=== PATIENT | male | born 1945 | race Caucasian/White ===

== ENCOUNTER 2019-06-29 16:50 | Inpatient (IN) | payer MEDICARE ==
[~2019-06-29] VITALS: Ht 182.9 cm; Wt 74.0 kg
[~2019-06-29 16:50] MED LIST: PIOGLITAZONE HC45 MG PO
[2019-06-29 17:48] LABS: BASOPHILS ABSOLUTE AUTO 0.03 K/mm3 (0.00-0.23); BASOPHILS PERCENT AUTO 0 % (0-2); EOSINOPHILS ABSOLUTE AUTO 0.09 K/mm3 (0.00-0.68); EOSINOPHILS PERCENT AUTO 1 % (0-6); Hematocrit 44.2 % (37.0-53.0); Hemoglobin 14.4 g/dL (13.5-17.5); IMMATURE GRAN ABSOLUTE AUTO 0.02 K/mm3 (0.00-0.10); IMMATURE GRAN PERCENT AUTO 0 % (0-1); LYMPHOCYTES ABSOLUTE AUTO 0.36 K/mm3 (0.84-5.20); LYMPHOCYTES PERCENT AUTO 5 % (21-46); MONOCYTES ABSOLUTE AUTO 0.34 K/mm3 (0.16-1.47); MONOCYTES PERCENT AUTO 4 % (4-13); Mean Corpuscular HGB 32.4 pg (26.0-34.0); Mean Corpuscular HGB Conc 32.6 g/dL (31.5-36.5); Mean Corpuscular Volume 100 fL (80-100); Mean Platelet Volume 11.7 fL (9.1-12.4); NEUTROPHILS PERCENT AUTO 89 % (41-73); Platelet Count 155 K/mm3 (150-400); RDW Coefficient Variation 13.4 % (11.7-14.2); RDW Standard Deviation 49.4 fL (35.1-46.3); Red Blood Cell Count 4.44 M/mm3 (4.30-5.90); White Blood Cell Count 7.94 K/mm3 (4.00-11.30)
[2019-06-29 18:02] LABS: Albumin, Blood 3.6 g/dL (3.4-5.0); Albumin/Globulin Ratio 0.9 (0.8-1.8); Bilirubin, Total 1.3 mg/dL (0.1-1.0); Bun/Creatinine Ratio 14.4 (12.0-20.0); Calcium, Blood 9.2 mg/dL (8.5-10.1); Creatinine, Blood 1.25 mg/dL (0.60-1.20); Globulin, Blood 4.2 g/dL (2.2-4.0); Potassium, Blood 4.4 mmol/L (3.5-5.5); Total Protein, Blood 7.8 g/dL (6.4-8.2)
[2019-06-29] MEDS ORDERED: DONEPEZIL HCL10 M1 PO (18:18)
[2019-06-29] MEDS ORDERED: Fenofibrate200 MG PO (18:19)
[2019-06-29] MEDS ORDERED: Fish Oil 10001000 MG PO (18:30)
[2019-06-29] MEDS ORDERED: VITAMIN B-121000 MC3 PO (18:31)
[2019-06-29] MEDS ORDERED: TOCO1000 PO (18:31)
[2019-06-29 18:35] LABS: International Normalized Ratio 1.28; Prothrombin Time Results 13.5 Sec (9.7-11.5)
[2019-06-29 18:43] LABS: Source, Urine Clean Catch
[2019-06-29 19:07] LABS: Appearance, Urine Clear (Clear); Bilirubin, Urine Neg (Neg); Blood, Urine 1+ (Neg); Color, Urine Yellow (P-Yellow); Glucose Qualitative, Urine 4+ (Neg); Ketones, Urine 1+ (Neg); Leukocyte Esterase, Urine Neg (Neg); Nitrite, Urine Neg (Neg); Protein, Urine 1+ (Neg); Urobilinogen, Urine 2+ (Normal)
[2019-06-29 19:23] LABS: Squamous Epithelial Cells Rare /hpf (Few); White Blood Cells, Urine 0-2 /hpf (0-5)
[2019-06-29 19:24] LABS: Bacteria Rare /hpf
[2019-06-29 21:08] LABS: Influenza A Negative (NEGATIVE); Influenza B Negative (NEGATIVE)
--- NOTE | 2019-06-29 23:00 | NUR ---
Admission/[place] of Care: Patient arrived to unit at 2215hr via stretcher, accompanied by ED nurse. Transferred to ICU bed without difficulty. Patient alert, but only answers simple yes/no questions. Fidgeting some in bed, occasionally pulling at lines, tubes, cords. Per discussion with patient's , patient's neuro status is at baseline r/t severe Alzheimer's. Bilateral peripheral IV's in place, infusing LR at 125ml/hr. Heart rhythm shows bijemini/trijemini at times, or sinus rhythm with occasional PVC's, rate 60's. BP shows systolic in the 80's-90's, MAPs's 50's-60's. Lung sounds clear, O2-94-98% on RA. Denies pain, discomfort, SOB, or dyspnea. at bedside, call light in reach. Will continue to monitor.
--- NOTE | 2019-06-30 | NUR ---
Update/ Call to Dr. Horan: Call placed to Dr. Horan at this time. Patient's BP continues to be borderline, systolic 80's-90's, MAPs 50's-60's. Received instructions to bladder scan patient and increase LR to 150ml/hr. Patient's bladder scan showed 70-80ml, bladder soft and non-distented, denies need to void. Patient's states patient is continent of urine at baseline. at 0015hr, patient pulled out x1 IV and continually pulling at lines, tubes, cords. Despite frequent re-direction by staff. Received order to place patient in bilateral soft wrist restraints. Restraints appeared to further agitate patient as he has difficulty comprehending reason for restraints. Additional call placed to Dr. Horan, received order for prn IV Haldol 2.5mg. X1 dose prn Haldol given. Will continue to monitor.
[2019-06-30 05:00] LABS: Adenovirus Not Detected (NOT DETECT); Bordetella pertussis Not Detected (NOT DETECT); Chlamydophila pneumoniae Not Detected (NOT DETECT); Coronavirus 229E Not Detected (NOT DETECT); Coronavirus HKU1 Not Detected (NOT DETECT); Coronavirus NL63 Not Detected (NOT DETECT); Coronavirus OC43 Not Detected (NOT DETECT); Human Metapneumovirus Not Detected (NOT DETECT); Human Rhinovirus/Enterovirus Not Detected (NOT DETECT); Influenza A Not Detected (NOT DETECT); Influenza A/2009-H1 Not Detected (NOT DETECT); Influenza A/H1 Not Detected (NOT DETECT); Influenza A/H3 Not Detected (NOT DETECT); Influenza B Not Detected (NOT DETECT); Mycoplasma pneumoniae Not Detected (NOT DETECT); Parainfluenza Virus 1 Not Detected (NOT DETECT); Parainfluenza Virus 2 Not Detected (NOT DETECT); Parainfluenza Virus 3 Not Detected (NOT DETECT); Parainfluenza Virus 4 Not Detected (NOT DETECT); Respiratory Syncytial Virus Not Detected (NOT DETECT)
[2019-06-30 05:38] LABS: BASOPHILS ABSOLUTE AUTO 0.03 K/mm3 (0.00-0.23); BASOPHILS PERCENT AUTO 0 % (0-2); EOSINOPHILS ABSOLUTE AUTO 0.02 K/mm3 (0.00-0.68); EOSINOPHILS PERCENT AUTO 0 % (0-6); Hematocrit 38.1 % (37.0-53.0); IMMATURE GRAN ABSOLUTE AUTO 0.05 K/mm3 (0.00-0.10); IMMATURE GRAN PERCENT AUTO 1 % (0-1); LYMPHOCYTES ABSOLUTE AUTO 1.44 K/mm3 (0.84-5.20); LYMPHOCYTES PERCENT AUTO 14 % (21-46); MONOCYTES ABSOLUTE AUTO 0.48 K/mm3 (0.16-1.47); MONOCYTES PERCENT AUTO 5 % (4-13); Mean Corpuscular HGB 31.6 pg (26.0-34.0); Mean Corpuscular HGB Conc 31.5 g/dL (31.5-36.5); Mean Corpuscular Volume 100 fL (80-100); NEUTROPHILS ABSOLUTE AUTO 8.39 K/mm3 (1.96-9.15); NEUTROPHILS PERCENT AUTO 81 % (41-73); Platelet Count 104 K/mm3 (150-400); RDW Coefficient Variation 13.5 % (11.7-14.2); White Blood Cell Count 10.41 K/mm3 (4.00-11.30)
[2019-06-30 06:04] LABS: Anion Gap 7 mmol/L (6-16); Blood Urea Nitrogen 15 mg/dL (8-24); Bun/Creatinine Ratio 14.7 (12.0-20.0); CO2, Blood 18 mmol/L (21-32); Calcium, Blood 7.9 mg/dL (8.5-10.1); Chloride, Blood 117 mmol/L (98-108); Creatinine, Blood 1.02 mg/dL (0.60-1.20); Glomerular Filtration Rate >60 (60-); Glucose, Blood 145 mg/dL (70-99); Potassium, Blood 3.9 mmol/L (3.5-5.5); Sodium, Blood 142 mmol/L (136-145)
--- NOTE | 2019-06-30 06:29 | NUR ---
Shift Summary: Patient slept on/off throughout remainder of shift. PRN Haldol x1 effective to decrease agitation/restlessness. Patient continues to occasionally fidget in bed, attempt to get out of bed, or pull at lines/tubes/cords. Remains alert when awake, but continues to only answer yes/no questions. Bilateral soft wrist restraints remain in place. Peripheral IV's remain patent and intact. Incontinent of urine x1. Sleeping at this time. Will continue monitor until report to day shift RN.
--- NOTE | 2019-06-30 07:30 | NUR ---
START OF SHIFT NOTE: RECEIVED REPORT FROM SHERRELL SAMANO RN, ASSUMED CARE, PATIENT IS AWAKE, HAS A HISTORY OF SEVERE DEMENTIA, PER , HIS BASELINE IS THAT HE KNOWS WHEN HE NEEDS TO URINATE AND JUST WALKS TO THE BATHROOM INDEPENDENTLY, PATIENT IS ABLE ABLE TO ANSWER SIMPLE QUESTIONS WITH YES OR NO, DENIES PAIN, AFEBRILE, IN BILATERAL SWB D/T PULLING OFF LEADS AND PULLING OUT PIV'S ALL NIGHT, ON RA SATING AT 98 %, SINUS DAVID WHILE SLEEPING, HR SR UP IN 60'S TO 70'S WHEN AWAKE, BOWEL TONES ARE PRESENT AND HYPERACTIVE, NPO AT THIS TIME PATIENT IS WEARING ATTENDS AT THIS TIME, PEDAL PULSES ARE PALPABLE, PATIENT IS PLEASANT AND COOPERATIVE, CALL LIGHT IN REACH, WILL CONTINUE TO MONITOR.
--- NOTE | 2019-06-30 09:23 | NUR ---
PATIENT NOW IN BILATERAL WRIST RESTRAINTS AND VEST PLACED, ALSO RECEIVED HALDOL 2.5 MG IM ORDERED FOR EXTREME AGITATION, TRYING TO PULL OFF LEADS AND PULL OUT PIV'S, TRYING TO GET OOB, PATIENT IS WEAK AND A FALL RISK, NPO AT THIS TIME, AT BEDSIDE AND UPDATED ABOUT PATIENT CONDITION, CALL LIGHT IN REACH, WILL CONTINUE TO MONITOR.
--- NOTE | 2019-06-30 09:55 | NUR ---
PATIENT APPEARS CALMER AFTER RECEIVING HALDOL, STILL PULLING ON RESTRAINTS BUT NOT TRYING TO GET OOB, CONTINUES TO BE AT BEDSIDE, CALL LIGHT IN REACH, WILL CONTINUE TO MONITOR.
--- NOTE | 2019-06-30 10:17 | NUR ---
SPOKE WITH PATIENT'S AND SHE STATED THAT PATIENT "SLEEPS ABOUT 17 HOURS AT HOME, WHEN HE IS UP HE GOES TO THE BATHROOM INDEPENDENTLY, HE KNOWS WHEN TO GO, HE ALSO GOES TO THE KITCHEN AND GETS SOMETHING TO EAT, HE DOES NOT EAT MUCH AND NOT VERY NUTRITIOUS FOODS, HE IS ALSO ABLE TO GO UP AND DOWN THE STAIRS AT HOME INDEPENDENTLY, ALL BEDROOMS ARE UPSTAIRS, MOSTLY THOUGH HE WATCHES TV", PATIENT APPEARS MUCH CALMER NOW AND IS YAWNING, NOT TRYING TO CLIMB OOB ANYMORE.
--- NOTE | 2019-06-30 11:31 | NUR ---
DR. MARTINEZ IN TO SEE PATIENT, NEW ORDERS RECEIVED, PATIENT IS NOW MEDICAL STATUS WITH TELE.
--- NOTE | 2019-06-30 12:32 | NUR ---
REPORT CALLED TO NELLIE RANGEL, ON MEDICAL FLOOR, WILL TRANSFER PATIENT TO ROOM 353 ON MEDICAL FLOOR.
--- NOTE | 2019-06-30 13:51 | NUR ---
PT AROUSED FOR LUNCH. CONTINUES QUIET, MINIMAL VERBAL. WHEN ASKED WHETHER HE IS HAVING DIFFICULTY w VOICES HE STATE YES, ASKED IF HE NEED PRN ZYPREXA STATE YES, GIVEN. WILL CONTINUE TO MX.
--- NOTE | 2019-06-30 14:05 | NUR ---
Initial Visit: Palliative Care Consult for Advanced Care Planning and Symptom Management. Pt is A&O to self only. Pt appears agitated as evidenced by pulling arms against restraints and attempting to get out of bed. Pt's Carolina is at bedside. Engaged in therapeutic discussion regarding Advanced Care Planning. Carolina reports Pt lives at home with her and Pt's son. Son assists with his care as needed but Carolina is Pt's primary caregiver. Listened as Carolina reports a significant decline in Pt in the last 6 months with his mentation. 6 months ago Pt was still walking [place] [employer] on a daily basis. Pt now remains in the home for the most part. Before this hospital stay carolina reports Pt was able to ambulate on his own, feed himself, dress him self, and use the bathroom on his own. Pt does fear taking a shower or bath and needs assistance with this activity. Carolina reports Pt's appetite has decreased recently. Engaged in discussion regarding disease process including trajectory of disease. Discussed the importance of planning for the future regarding care needs such as in home caregivers or the possibility of needing a higher level of care. Discussed the possbility of hospice becoming an option as disease process takes its coarse. Carolina reports being open to hospice as an option and states she does'nt know when to consider this option. Instructed if Pt returns to baseline before this hospital stay then Pt may not meet criteria. If Pt maintanes current clinical picture then Pt may qualify. Suggested options on how to initiate hospice evaluation. Discussed completing a POLST with Carolina expressing interest. Educated on life sustaining measures and each section to complete. Carolina reports Pt would want to focus on comfort but will wait to complete POLST to see if Pt improves. No other concerns reported at this time. Spoke with bedside RN Moris, discussed case, and reported Pt's agitation. Current Prognostication scores PPS 30% Karnofsky 40% FAST 7C ADLs 5/6 Above scores do not reflect Pt's baseline. If current clinical picture remains the same, Pt may qulify for hospice. Palliative Care will remain available.
--- NOTE | 2019-06-30 18:16 | NUR ---
SUMMARY PT TRANSFERRED TO 353 FROM ICU 7 APPROX 1300 TODAY IN VEST & WRIST RESTRAINTS. HX ALZ/DEM, HE IS VERY CONFUSED, AGITATED/RESTLESS, ATTEMPTING TO PULL FREE FORM RESTRAINTS & GET OOB. @ BEDSIDE STATES HE HAS BASELINE CONFUSION ORIENTED TO SELF ONLY, MINIMAL VERBAL, STATES HE USUALLY ANSWERS ONLY YES OR NO & NOT ALWAYS APPROP. STATE HE IS VERY [place]. STATE DECREASED MENTATION, N/V & FALL @ HOME REASON BROUGHT HIM TO HOSP. DX SEPSIS, IV ANTIBX ORDERED. NS INFUSING @ 75 ML/HR. AFEBRILE, VSS. TELE REPORT NSR 60-70'S. PT CONTINUALLY ATTEMPTING OOB, REQUEST BEDRAILS UP. DR MARTINEZ ORDER GEODON 10MG IM X1 HOWEVER INEFFECTIVE. APPROX 1800 GAVE HALDOL 2.5MG, BACK IN TO SIT w HIM, HE HAS CALMED SOMEWHAT.
--- NOTE | 2019-07-01 05:16 | NUR ---
SHIFT SUMMARY PT RESTS FOR A GOOD MAJORITY OF THE SHIFT. LUTHER AND WRIST RESTRAINTS PT PULLS AT LINES AND IVS, AND HAS PULLED OUT MULTIPLE IVS DURING STAY, AGITATION, AND IS AT HIGH RISKS FOR FALLS. PT HAS RESTED WELL MOST OF THIS SHIFT. NO S/S OF DISTRESS. HE HAS OVERALL HAD A MUCH BETTER NIGHT IN COMPARISON TO PREVIOUS NIGHTS. REMOVED PT FROM LUTHER AND WRIST RESTRAINTS HE IS NOT DISPLAYING AGITATION AND NOT ATTEMPING TO PULL AT LINES AT THIS TIME. PT IS COOPERATIVE WITH STAFF. A/O TO SELF AND RESPONDS "YEA" TO MOST QUESTIONS. PT AEFRIBE AND VITALS STABLE. INCONTINENT AND HAS NOT REQUESTED TO USE URINAL. PER PT USED THE BATHROOM INDEPENDENTLY AT BASELINE. IVF INFUSED PER ORDERS. BED IN LOWEST POSITION, CALL LIGHT WITHIN REACH. WILL CONTINUE TO MONITOR AND REPORT TO ONCOMING RN.
[2019-07-01 05:26] LABS: BASOPHILS ABSOLUTE AUTO 0.02 K/mm3 (0.00-0.23); BASOPHILS PERCENT AUTO 0 % (0-2); EOSINOPHILS ABSOLUTE AUTO 0.04 K/mm3 (0.00-0.68); EOSINOPHILS PERCENT AUTO 1 % (0-6); Hematocrit 34.1 % (37.0-53.0); Hemoglobin 10.9 g/dL (13.5-17.5); IMMATURE GRAN ABSOLUTE AUTO 0.03 K/mm3 (0.00-0.10); IMMATURE GRAN PERCENT AUTO 1 % (0-1); LYMPHOCYTES ABSOLUTE AUTO 0.74 K/mm3 (0.84-5.20); LYMPHOCYTES PERCENT AUTO 16 % (21-46); MONOCYTES PERCENT AUTO 4 % (4-13); Mean Corpuscular HGB 31.8 pg (26.0-34.0); Mean Corpuscular Volume 99 fL (80-100); NEUTROPHILS ABSOLUTE AUTO 3.57 K/mm3 (1.96-9.15); NEUTROPHILS PERCENT AUTO 78 % (41-73); Platelet Count 104 K/mm3 (150-400); RDW Coefficient Variation 13.7 % (11.7-14.2); Red Blood Cell Count 3.43 M/mm3 (4.30-5.90)
[2019-07-01 05:41] LABS: Anion Gap 6 mmol/L (6-16); Blood Urea Nitrogen 14 mg/dL (8-24); Bun/Creatinine Ratio 13.9 (12.0-20.0); CO2, Blood 25 mmol/L (21-32); Chloride, Blood 114 mmol/L (98-108); Creatinine, Blood 1.01 mg/dL (0.60-1.20); Glomerular Filtration Rate >60 (60-); Glucose, Blood 106 mg/dL (70-99); Potassium, Blood 3.7 mmol/L (3.5-5.5); Sodium, Blood 145 mmol/L (136-145)
--- NOTE | 2019-07-01 09:32 | NUR ---
PATIENT NOTED TO HAVE APNIC SPELLS WHILE SLEEPING, I COUNTED A 38 SECOND SPELL FOLLOWED BY A [address] HERRERA BY PHONE AT 0900. NO NEW ORDERS GIVEN.
--- NOTE | 2019-07-01 16:22 | NUR ---
SHIFT SUMMARY PATIENT ALERT AND ORIENTED TO HIS NAME. CAN SAY ABOUT 3 WORDS IN TOTAL. ATTEMPTS TO CLIMB OUT OF BED CONSTANTLY, HAD TO PLACE BACK INTO A LUTHER VEST, ORDERS OBTAINED FROM DR HERRERA. CONTINUES ON IV ABX WITHOUT S/SX OF ADVERSE REACTIONS NOTED OR REPORTED. NO ACUTE CHANGES NOTED OR REPORTED THIS SHIFT. WILL CONTINUE TO MONITOR AND PROVIDE CARE NEEDED.
--- NOTE | 2019-07-01 18:03 | NUR ---
PATIENT PERMISSION PATIENT GAVE THIS STUDENT NURSE PERMISSION TO PROVIDE CARE ON 07/01/2019 FROM [id number].
--- NOTE | 2019-07-01 21:58 | NUR ---
PT alert confused in vest restraint and 4 side rails. PT confused and unable to state last name or date of . Attempting to climb out of bed and haldol 2.5 mg iv helpful to stop that behavior. Fed applesauce and nutritional supplement 100%. On IV levaquin for sepsis. Resting quietly now after haldol.
--- NOTE | 2019-07-01 22:23 | NUR ---
PT has sepsis dementia multiple falls and hard of hearing, in vest restraint to prevent falls and he does not redirect well. continue with fall and restraint precautions as well as aspiration precautions. Expained use of HAldol for agitation. Minimal understanding.
--- NOTE | 2019-07-02 00:37 | NUR ---
PT continues in vest restraint to prevent falls. Multiple falls at home. HX of dementia, difficult to redirect. Haldol 2.5 mg iv x 1 with very mild helpful effect on aggitation. Incontinent of bowel and bladder able to roll side to side or lift hips for attends change. Does not use call mcgee. Meds crushed in applesauce, needs fed. Aspiration precautions. and provides care.
[2019-07-02 05:25] LABS: BASOPHILS ABSOLUTE AUTO 0.03 K/mm3 (0.00-0.23); BASOPHILS PERCENT AUTO 1 % (0-2); EOSINOPHILS ABSOLUTE AUTO 0.13 K/mm3 (0.00-0.68); EOSINOPHILS PERCENT AUTO 3 % (0-6); Hematocrit 37.3 % (37.0-53.0); IMMATURE GRAN ABSOLUTE AUTO 0.05 K/mm3 (0.00-0.10); IMMATURE GRAN PERCENT AUTO 1 % (0-1); LYMPHOCYTES ABSOLUTE AUTO 1.36 K/mm3 (0.84-5.20); LYMPHOCYTES PERCENT AUTO 34 % (21-46); MONOCYTES PERCENT AUTO 8 % (4-13); Mean Corpuscular HGB 31.7 pg (26.0-34.0); Mean Corpuscular HGB Conc 32.2 g/dL (31.5-36.5); Mean Corpuscular Volume 98 fL (80-100); Mean Platelet Volume 11.1 fL (9.1-12.4); NEUTROPHILS ABSOLUTE AUTO 2.13 K/mm3 (1.96-9.15); NEUTROPHILS PERCENT AUTO 53 % (41-73); Platelet Count 119 K/mm3 (150-400); RDW Coefficient Variation 13.4 % (11.7-14.2); RDW Standard Deviation 48.4 fL (35.1-46.3); Red Blood Cell Count 3.79 M/mm3 (4.30-5.90)
[2019-07-02 05:52] LABS: Anion Gap 5 mmol/L (6-16); Blood Urea Nitrogen 16 mg/dL (8-24); Bun/Creatinine Ratio 16.8 (12.0-20.0); CO2, Blood 29 mmol/L (21-32); Calcium, Blood 8.5 mg/dL (8.5-10.1); Chloride, Blood 111 mmol/L (98-108); Creatinine, Blood 0.95 mg/dL (0.60-1.20); Glomerular Filtration Rate >60 (60-); Glucose, Blood 209 mg/dL (70-99); Potassium, Blood 3.7 mmol/L (3.5-5.5); Sodium, Blood 145 mmol/L (136-145)
--- NOTE | 2019-07-02 07:08 | NUR ---
PT CONTINUES TO NEED VEST RESTRAINT TO PREVENT FALLS AND FURTHER INJURY. MEDICATED WITH iv HALDOL 2.5 MG IV SECOND TIME DUE TO RESTLESS AGGITATED BEHAVIORS. Incontinent of bowel and bladder and unable to use call mcgee. Medicated x 1 for s/sx pain with mild helpful effect.
[2019-07-02] MEDS ORDERED: AMOCLA875 PO (12:38)
[2019-07-02] MEDS ORDERED: OLAN5 SL (12:39)
--- NOTE | 2019-07-02 14:08 | NUR ---
WENT HOME TO ALLOW HOSPITAL BED TO BE DELIVERED. WILL RETURN TO WEAVER HAND PATIENT. PATIENT WAS DRESSING AND CHANGED BY STAFF. IV REMOVED. PERSONAL ITEMS PLACED IN A BAG FOR HOME. PATIENT WAITING IN ROOM FOR .
--- NOTE | 2019-07-02 16:24 | NUR ---
PATIENT WAS PICKED UP BY HIS AND INSISTED ON AMBULATING TO HIS CAR, WITH THE RN AT HIS SIDE, AT 1610. THE PATIENT TO D/C HOME WITH HH WITH HIS .
== END 2019-07-02 16:14 | disposition home or self-care (01) | DRG 871 ==
LOC: ER 16:50 → MEDS 22:12 → ICUW 22:12 → ICUE 22:31 → MEDS 06-30 12:49
PROVIDERS: Emergency Medicine; Internal Medicine; Physician Assistant; ADMIT Family Medicine
DX: A41.9 Sepsis, unspecified organism (principal); J69.0 Pneumonitis due to inhalation of food and vomit; R65.20 Severe sepsis without septic shock; G47.33 Obstructive sleep apnea (adult) (pediatric); E11.22 Type 2 diabetes mellitus with diabetic chronic kidney disease; N18.3 Chronic kidney disease, stage 3 (moderate); G30.9 Alzheimer's disease, unspecified; F02.80 Dementia in other diseases classified elsewhere, unspecified severity, without behavioral disturbance, psychotic disturbance, mood disturbance, and anxiety; H91.90 Unspecified hearing loss, unspecified ear; R45.1 Restlessness and agitation; R11.2 Nausea with vomiting, unspecified; Z66 Do not resuscitate; Z79.899 Other long term (current) drug therapy; Z87.891 Personal history of nicotine dependence; Z78.1 Physical restraint status
CPT/HCPCS: 0099U; 36415; 51701; 71045; 74176; 80048; 80053; 81001; 82947; 83605; 84145; 85025; 85610; 85730; 87040; 87804; 92526; 92610; 93005; 93010; 96361; 96365; 96372-59; 99285-25; A9270; J1630; J1650; J1815; J1956; J2185; J3486; J7030; J7050; J7120

== ENCOUNTER 2019-07-06 16:51 | Inpatient (IN) | payer MEDICARE ==
[~2019-07-06] VITALS: Ht 172.7 cm; Wt 74.2 kg
[~2019-07-06 16:51] MED LIST changes: +AMOCLA875 PO; +DONEPEZIL HCL10 M1 PO; +Fenofibrate200 MG PO; +Fish Oil 10001000 MG PO; +OLAN5 SL; +TOCO1000 PO; +VITAMIN B-121000 MC3 PO
[2019-07-06 17:30] LABS: BASOPHILS ABSOLUTE AUTO 0.04 K/mm3 (0.00-0.23); BASOPHILS PERCENT AUTO 1 % (0-2); EOSINOPHILS ABSOLUTE AUTO 0.01 K/mm3 (0.00-0.68); EOSINOPHILS PERCENT AUTO 0 % (0-6); Hematocrit 42.1 % (37.0-53.0); Hemoglobin 13.5 g/dL (13.5-17.5); IMMATURE GRAN ABSOLUTE AUTO 0.08 K/mm3 (0.00-0.10); IMMATURE GRAN PERCENT AUTO 1 % (0-1); LYMPHOCYTES ABSOLUTE AUTO 0.69 K/mm3 (0.84-5.20); LYMPHOCYTES PERCENT AUTO 11 % (21-46); MONOCYTES ABSOLUTE AUTO 0.28 K/mm3 (0.16-1.47); MONOCYTES PERCENT AUTO 4 % (4-13); Mean Corpuscular HGB 31.8 pg (26.0-34.0); Mean Corpuscular HGB Conc 32.1 g/dL (31.5-36.5); Mean Corpuscular Volume 99 fL (80-100); Mean Platelet Volume 10.6 fL (9.1-12.4); NEUTROPHILS ABSOLUTE AUTO 5.31 K/mm3 (1.96-9.15); NEUTROPHILS PERCENT AUTO 83 % (41-73); Platelet Count 156 K/mm3 (150-400); RDW Coefficient Variation 13.7 % (11.7-14.2); RDW Standard Deviation 49.2 fL (35.1-46.3); Red Blood Cell Count 4.25 M/mm3 (4.30-5.90); White Blood Cell Count 6.41 K/mm3 (4.00-11.30)
[2019-07-06 17:49] LABS: Albumin, Blood 2.9 g/dL (3.4-5.0); Albumin/Globulin Ratio 0.7 (0.8-1.8); Bilirubin, Total 1.2 mg/dL (0.1-1.0); Bun/Creatinine Ratio 38.3 (12.0-20.0); Calcium, Blood 9.2 mg/dL (8.5-10.1); Creatinine, Blood 1.28 mg/dL (0.60-1.20); Potassium, Blood 4.1 mmol/L (3.5-5.5); Total Protein, Blood 6.9 g/dL (6.4-8.2)
[2019-07-06 18:33] LABS: Source, Urine Clean Catch
[2019-07-06 18:35] LABS: Bilirubin, Urine Neg (Neg); Blood, Urine 4+ (Neg); Glucose Qualitative, Urine 4+ (Neg); Ketones, Urine 1+ (Neg); Leukocyte Esterase, Urine Neg (Neg); Nitrite, Urine Neg (Neg); Protein, Urine 2+ (Neg); Urobilinogen, Urine NORM (Normal)
[2019-07-06 18:40] LABS: Appearance, Urine Hazy (Clear); Color, Urine Yellow (P-Yellow)
[2019-07-06 18:42] LABS: Squamous Epithelial Cells Few /hpf (Few); White Blood Cells, Urine 0-2 /hpf (0-5)
[2019-07-06 18:43] LABS: Amorphous Mod (0-Heavy); Bacteria Mod /hpf; Calcium Oxalate Crystals Few /hpf; Hyaline Casts 0-2 /lpf (0-2)
[2019-07-07 02:29] LABS: PCO2 Arterial 46.1 mmHg (35-45); PO2 Arterial 113 mmHg (80-100)
[2019-07-07 04:55] LABS: BASOPHILS ABSOLUTE AUTO 0.04 K/mm3 (0.00-0.23); BASOPHILS PERCENT AUTO 1 % (0-2); EOSINOPHILS ABSOLUTE AUTO 0.01 K/mm3 (0.00-0.68); EOSINOPHILS PERCENT AUTO 0 % (0-6); Hematocrit 35.8 % (37.0-53.0); Hemoglobin 11.4 g/dL (13.5-17.5); IMMATURE GRAN ABSOLUTE AUTO 0.05 K/mm3 (0.00-0.10); IMMATURE GRAN PERCENT AUTO 1 % (0-1); LYMPHOCYTES ABSOLUTE AUTO 0.77 K/mm3 (0.84-5.20); LYMPHOCYTES PERCENT AUTO 12 % (21-46); MONOCYTES ABSOLUTE AUTO 0.31 K/mm3 (0.16-1.47); MONOCYTES PERCENT AUTO 5 % (4-13); Mean Corpuscular HGB Conc 31.8 g/dL (31.5-36.5); Mean Corpuscular Volume 101 fL (80-100); Mean Platelet Volume 10.5 fL (9.1-12.4); NEUTROPHILS ABSOLUTE AUTO 5.35 K/mm3 (1.96-9.15); NEUTROPHILS PERCENT AUTO 82 % (41-73); Platelet Count 129 K/mm3 (150-400); RDW Coefficient Variation 13.8 % (11.7-14.2); RDW Standard Deviation 50.6 fL (35.1-46.3); Red Blood Cell Count 3.56 M/mm3 (4.30-5.90); White Blood Cell Count 6.53 K/mm3 (4.00-11.30)
[2019-07-07 05:18] LABS: Anion Gap 4 mmol/L (6-16); Blood Urea Nitrogen 39 mg/dL (8-24); Bun/Creatinine Ratio 31.5 (12.0-20.0); CO2, Blood 28 mmol/L (21-32); Calcium, Blood 8.3 mg/dL (8.5-10.1); Chloride, Blood 117 mmol/L (98-108); Creatinine, Blood 1.24 mg/dL (0.60-1.20); Glomerular Filtration Rate >60 (60-); Glucose, Blood 204 mg/dL (70-99); Potassium, Blood 3.8 mmol/L (3.5-5.5); Sodium, Blood 149 mmol/L (136-145)
--- NOTE | 2019-07-07 07:28 | NUR ---
SHIFT SUMMARY PT ARRIVED IN NO DISTRESS. PT IS ALERT TO SELF ONLY. PT CAME FROM ER WITH WRIST RESTRAINTS DUE TO PULLING AT SHELBY AND IV. PT PRESENT WITH PT. PT UNABLE TO ANSWER QUESTIONS. PT HAS NC W/ 3 LPMS. PT HAD SOME WITNESSED PERIODS OF APNEA THAT WAS RESOLVED WITH RAISING HOB. PT IS CURRENTLY AWKE WITH CALL LIGHT IN REACH. BED ALARM ON.
--- NOTE | 2019-07-07 17:40 | NUR ---
NO ACUTE CHANGES. HAS SLEPT THROUGHOUT THE DAY. AT BEDSIDE.
[2019-07-07 20:33] LABS: Vancomycin, Trough 8.1 ug/mL (5.0-10.0)
--- NOTE | 2019-07-08 04:17 | NUR ---
SHIFT SUMMARY NO NEW ISSUES NOTED. PT REMAINS IN WRIST RESTRAINTS. SHELBY DRAINING YELLOW URINE. PT REMAINS ALERT TO SELF ONLY. PT CURRENTLY SLEEPING AND BREATHING EASY. CALL LIGHT IN REACH.
[2019-07-08 05:09] LABS: BASOPHILS ABSOLUTE AUTO 0.04 K/mm3 (0.00-0.23); BASOPHILS PERCENT AUTO 1 % (0-2); EOSINOPHILS ABSOLUTE AUTO 0.15 K/mm3 (0.00-0.68); EOSINOPHILS PERCENT AUTO 4 % (0-6); Hematocrit 34.1 % (37.0-53.0); Hemoglobin 10.6 g/dL (13.5-17.5); IMMATURE GRAN ABSOLUTE AUTO 0.03 K/mm3 (0.00-0.10); IMMATURE GRAN PERCENT AUTO 1 % (0-1); LYMPHOCYTES ABSOLUTE AUTO 0.75 K/mm3 (0.84-5.20); LYMPHOCYTES PERCENT AUTO 18 % (21-46); MONOCYTES ABSOLUTE AUTO 0.25 K/mm3 (0.16-1.47); MONOCYTES PERCENT AUTO 6 % (4-13); Mean Corpuscular HGB 31.8 pg (26.0-34.0); Mean Corpuscular HGB Conc 31.1 g/dL (31.5-36.5); Mean Corpuscular Volume 102 fL (80-100); Mean Platelet Volume 10.6 fL (9.1-12.4); NEUTROPHILS ABSOLUTE AUTO 3.02 K/mm3 (1.96-9.15); NEUTROPHILS PERCENT AUTO 71 % (41-73); Platelet Count 115 K/mm3 (150-400); RDW Coefficient Variation 13.8 % (11.7-14.2); RDW Standard Deviation 52.1 fL (35.1-46.3); Red Blood Cell Count 3.33 M/mm3 (4.30-5.90); White Blood Cell Count 4.24 K/mm3 (4.00-11.30)
[2019-07-08 05:31] LABS: Anion Gap 5 mmol/L (6-16); Blood Urea Nitrogen 40 mg/dL (8-24); Bun/Creatinine Ratio 35.4 (12.0-20.0); CO2, Blood 29 mmol/L (21-32); Calcium, Blood 8.1 mg/dL (8.5-10.1); Chloride, Blood 117 mmol/L (98-108); Creatinine, Blood 1.13 mg/dL (0.60-1.20); Glomerular Filtration Rate >60 (60-); Glucose, Blood 196 mg/dL (70-99); Sodium, Blood 151 mmol/L (136-145)
[2019-07-08] MEDS ORDERED: TOCO1000 PO (08:35)
[2019-07-08] MEDS ORDERED: FISH OIL 1,2001 EAC3 PO (08:37)
[2019-07-08] MEDS ORDERED: DONEPEZIL HCL10 MG PO (08:38)
[2019-07-08] MEDS ORDERED: Fenofibrate200 MG PO (08:39)
[2019-07-08] MEDS ORDERED: Seroquel Xr50 MG PO (08:40)
[2019-07-08] MEDS ORDERED: METF500 PO (08:40)
[2019-07-08 10:45] LABS: PCO2 Arterial 49.8 mmHg (35-45); PO2 Arterial 152 mmHg (80-100); pH Blood Arterial 7.37 (7.35-7.45)
[2019-07-08 14:46] LABS: Anion Gap 5 mmol/L (6-16); Blood Urea Nitrogen 40 mg/dL (8-24); Bun/Creatinine Ratio 35.4 (12.0-20.0); CO2, Blood 27 mmol/L (21-32); Calcium, Blood 8.1 mg/dL (8.5-10.1); Chloride, Blood 116 mmol/L (98-108); Creatinine, Blood 1.13 mg/dL (0.60-1.20); Glomerular Filtration Rate >60 (60-); Glucose, Blood 247 mg/dL (70-99); Potassium, Blood 4.1 mmol/L (3.5-5.5); Sodium, Blood 148 mmol/L (136-145)
--- NOTE | 2019-07-08 18:10 | NUR ---
Pt is known to this technical publications writer from previous hospital stay. Pt is resting in bed with his eyes closed and appears agitated as evidenced by pulling at restraints and constant movement of his lower extremities. Pt's Neftali is at bedside. Listened as Neftali expresses concerns regarding Pt's clinical picture. She reports having a discussion with Pt's PCP after his last hospital stay and goals of care were discussed. POLST form was completed with Pt's wishes for DNR and comfort measures only. Carolina reports having this discussion with Pt years ago and she reports these are his wishes. Carolina reports interest in having Pt placed to higher level of care with hospice. She reports inability to physically care for Pt. Educated on hospice and comfort care philosophy with V/U made by Carolina. Carolina reports she would like comfort care measures started now. No other concerns reported at this time. Spoke with Merchant Mill Utility Worker Faina and relayed Carolina's concerns and wishes. Spoke with Dr Koenig and discussed case. Dr Koenig is agreeable with starting comfort care now. Placed comfort care order, comfort care order set, D/C Zyprexa and replaced it with Haldol, and discontinued maintenance medications per V/O from Dr Koenig. Spoke with Bedside NELLIE Alcantar and discussed case. Palliative Care will remain available for symptom management and therapeutic visits.
--- NOTE | 2019-07-08 19:36 | NUR ---
PT RESTING IN BED ALERT, VERY CONFUSED/DISORIENTED, PT RESTRAINED T/O THE THE DAY DUE TO PULLING AT HIS CATHETER AND IV, THE PT APPEARS TO BE BREATHING EASILY ON O2 AT THIS TIME, THE PTS WAS AT THE BEDSIDE T/O THE DAY, PT POSITIONED T/O THE DAY, CALL LIGHT IN REACH BED ALARM ON
--- NOTE | 2019-07-08 22:18 | NUR ---
RESTRAINTS: PATIENT IS CALM AND RELAXED AFTER HALDOL AND MORPHINE. RESTRAINTS ARE REMOVED. SON IS AT BEDSIDE AND EDYCATION IS GIVEN. BED ALARM IS ON FOR SAFETY.
--- NOTE | 2019-07-08 23:37 | NUR ---
COMFORT: PATIENT IS RESTING QUIETLY WITH AT BEDSIDE. GOOD EFFECT FROM HALDOL AND ROXANOL.
--- NOTE | 2019-07-08 23:40 | NUR ---
COMFORT: PATIENT SCORES A 5 ON FLACC SC RAMOS FOR PAIN. MUMBLING NONSENSICAL WORKS. ROXANOL, EMOTIONAL SUPPORT AND REPOSITIONING IS GIVEN.
--- NOTE | 2019-07-09 03:08 | NUR ---
COMFORT: PATIENY IS RESTING QUIETLY. GOOD EFFECT FROM ATIVAN GIVEN.
--- NOTE | 2019-07-09 03:11 | NUR ---
COMFORT:PATIENT IS SCORING A 4 ON FLACC SCALE, ROXANOL IS GIVEN.
--- NOTE | 2019-07-09 04:57 | NUR ---
COMFORT: PATIENT IS RESTING COMFORTABLY AT THIS TIME. RESPIRATIONS ARE 14.
--- NOTE | 2019-07-09 07:15 | NUR ---
PT SLEEPING AT THIS TIME APPEARS COMFORTABLE
--- NOTE | 2019-07-09 08:39 | NUR ---
PT IS SLEEPING APPEARS COMFORTABLE, REPOSITONED THE PT
--- NOTE | 2019-07-09 10:29 | NUR ---
Pt resting in bed with his eyes closed and appears comfortable with no S/S of distress at this time. Pt's Carolina is at bedside. Obtained copies of Pt's POLST. Pt's wishes are DNR and comfort measures only. Placed 2 copies in Pt's hard chart and will fax a copie to medical records. Carolina reports she prefers [facility] upon discharge. She also reports goal is still to have Pt placed due to her inability to physically care for Pt. No other concerns reported at this time. Spoke with Smeller Faina and discussed case. Palliative Care will remain available.
--- NOTE | 2019-07-09 12:37 | NUR ---
PT REMAINS SLEEPING, REPOSITIONED, DOES NOT AWAKEN WITH POSITIONING OR ORAL CARE, IS AT THE BEDSIDE
--- NOTE | 2019-07-09 15:46 | NUR ---
PT REMAINS SEMI COMATOSE, IS NON RESPONSIVE TO STIMULI, PT WAS REPOSITIONED, AT THE BEDSIDE
--- NOTE | 2019-07-09 15:48 | NUR ---
PT HAS REMAINED UNCHANGED SEMI COMATOSE SINCE THIS AM, FAMILY WAS IN TO SEE THE PT, PTS IS AT THE BEDSIDE
--- NOTE | 2019-07-09 16:01 | NUR ---
PT REPOSITIONED, CONTINUES TO BE UNRESPONSIVE
--- NOTE | 2019-07-09 17:35 | NUR ---
Spiritual Care note: Met with Mr. Crabtree's , Carolina, at bedside. Engaged her in conversation about their life together. She is rather stoic and denied concerns. She expresses releif that Danilo is "finally comfortable." "Its been a long raod, but this part came so fast." I provided theraputic listening and emotional affirmation to good effect. Non-mu-ism, but Carolina responded well to companionship and comfort. Pt slept peacefully throughout visit. He appears at peace and well cared-for by excellent nursing. I will remain available.
--- NOTE | 2019-07-09 18:03 | NUR ---
PT UNCHANGED FROM THIS AM SEMI COMATOSE, DOES NOT RESPOND TO STIMULUS, PT REPOSITIONED T/O THE SHIFT, MOUTH CARE GIVEN, PT APPEARS TO BE COMFORTABLE AT THIS TIME, IS AT THE BEDSIDE,
--- NOTE | 2019-07-09 19:49 | NUR ---
COMFORT: TERENCE IS AT THE BEDSIDE, NI S/S OF PAIN OR DISCOMFORT AT THIS TIME. T&O&P AND PERSONAL CARE COMPLETED.
--- NOTE | 2019-07-09 22:56 | NUR ---
COMFORT: PATIENT IS UNRESPONSIVE BUT DOES GRIMACE WITH T&P BUT SETTLES QUICKLY AND IS RESTING COMFORTABLY WITH AT BEDSIDE. ORAL CARE IS ALSO GIVEN.
--- NOTE | 2019-07-10 00:46 | NUR ---
COMFORT: PATIENT CONTINUES TO REST COMFORTABLE, NO S/S OF DISCOMFORT WITH T&P. RESPIRATIONS ARE EASY AT 18.
--- NOTE | 2019-07-10 02:54 | NUR ---
COMFORT: PATIENT IS RESTING WITHOUT S/S OF PAIN OR DISCOMFORT. ORAL CARE AND T&P WERE GIVEN. IS RESTING AT BEDSIDE.
--- NOTE | 2019-07-10 07:44 | NUR ---
COMFORT CARE: PATIENT CONTINUES TO REST COMFORTABLY IN BED WITH NO S/S OF PAIN OR DISCOMFORT. MINIMALLY RESPONSIVE WITH T&P AND MOUTH CARE. MOUTH AND T&P WERE GIVEN AND EMOTIONAL SUPPORT TO PATIENT AND WHO REMAINS AT BEDSIDE.
--- NOTE | 2019-07-10 11:14 | NUR ---
Comfort Care: Pt resting in bed with his eyes closed. Pt appears comfortable with no S/S of distress at this time. This RN is accompanied by nursing home administrator Snehal. Pt's Carolina is at bedside. Engaged in therapeutic discussion regarding plan. Carolina is agrreable for Pt to dishcarge back home with [facility]. Carolina reports no concerns with caring for Pt and has Pt's son to help with providing care. Palliative Care will remain available.
--- NOTE | 2019-07-10 14:17 | NUR ---
PATIENTS AT BEDSIDE AND ASKED THAT WE LET PATIENT REST A BIT LONGER BEFOR REPOSITIONING HIM. DID REQUESTED. PATIENT APPEARS COMFY.
--- NOTE | 2019-07-10 15:31 | NUR ---
SHIFT SUMMARY THE PATIENT HAS REMAINED NON-RESPONSIVE THE ENTIRE SHIFT. THE HAS BEEN AT BEDSIDE THE MAJORITY OF THE DAY BUT STEPPED OUT YO GET FRESHENED UP A BIT AT HOME. ORAL CARE PROVIDED Q4HRS. PATIENT REPOSITIONED Q2HRS OR FAMILY ALLOWS. SHELBY PATENT WITH MINIMAL DARK ORANGE URINE PRESENT. EDEMEDOUS SCROTUM NOTED. PATIENT NPO, UNABLE TO EAT OR DRINK. WILL CONTINUE TO PROVIDE COMFORT CARE PER ORDERS.
--- NOTE | 2019-07-10 18:46 | NUR ---
Met with spouse at bedside. Mr. Caldwell was snoring loudly. He did not respond to voice or touch, but appears calm and comfortable. Provided supportive visit to Carolina with gentle counseling case manager and comfort. She is pleased with plan for him to return home with hospice services and feels well supported by family. No fears or concerns presented. She expressed appreciation for companionship and encouragement. I will remain available.
--- NOTE | 2019-07-11 00:16 | NUR ---
COMFORT CARE: PATIENT IS RESTING COMFORTABLY, UNRESPONSIVE, COUGHING OCCASSIONALLY, UNABLE TO BRING UP SECRETIONS. ORAL SUCTIONING, MOUNTH CARE AND T&P GIVEN. IS AT BEDSIDE.
--- NOTE | 2019-07-11 00:19 | NUR ---
COMFORT CARE: PATIENT IS RESTING COMFORTABLY, NO S/S OF DISCOMFORT, ONLY MINIMAL RESPONSE TO ORAL CARE. PATIENT IS WARM TO TOUCH, BLANKET IS REMOVED AND TEMP. IN ROOM ADJUSTED.
--- NOTE | 2019-07-11 01:58 | NUR ---
COMFORT CARE: PATIENT IS RESTING COMFORTABLY, CONTINUES TO HAVE A MOIST WEAK COUGH, ORAL CARE, SUCTIONING AND T&P ARE GIVEN. IS AT BEDSIDE, EMOTIONAL SUPPORT GIVEN TO AND PATIENT.
--- NOTE | 2019-07-11 04:45 | NUR ---
COMFORT CARE: PATIENT CONTINOUS TO BE UNRESPONSIVE, NO S/S OF PAIN OR DISCOMFORT, RESPIRATIONS ARE 23 AND REGULAR. IS AT BEDSIDE PROVIDING EMOTIONAL SUPPORT.
--- NOTE | 2019-07-11 07:13 | NUR ---
COMFORT CARE: PATIENT IS RESTING COMFORTABLY IN BED, RESPIRATIONS ARE 30. ORAL CARE AND T&P GIVEN. REMAINS AT BEDSIDE.
[2019-07-11] MEDS ORDERED: FEVERALL PR (08:02)
[2019-07-11] MEDS ORDERED: ATROPINE SULFATE2 ML SL (08:03)
[2019-07-11] MEDS ORDERED: PERIDEX15 ML MM (08:06)
[2019-07-11] MEDS ORDERED: Haloperidol2 MG/1 ML PO (08:07)
[2019-07-11] MEDS ORDERED: LORA1 PO (08:08)
[2019-07-11] MEDS ORDERED: Transderm-Scop1 EACH TOP (08:09)
[2019-07-11] MEDS ORDERED: MORP20L SL (08:09)
--- NOTE | 2019-07-11 10:00 | NUR ---
COMFORT CARE VISIT AND CASE CONFERENCE: Assessed pt, who is unresponsive, warm with skin damp to the touch. Respiratory rate 40/min. Dawson cath with sm amt of dk urine noted. Cool cloth to pt's face. Reported findings to RN and requested pt be given 5 mg of Roxanol per eMAR for increased respiratory effort. Met with Care management staff and . Spent some time reminiscing with , as pt known to me in community x 40 years. Pt due to be d/c'd home with family and Hospice care arranged there per Care Managers.
--- NOTE | 2019-07-11 10:17 | NUR ---
5MG MSIR GIVEN TO PT FOR RR OF 33.
--- NOTE | 2019-07-11 10:28 | NUR ---
PATIENT NOTED TO BE A BIT CLAMMY AND WARM. AFTER REPOSITIONING HIM AND CLEANING HIS FACE AND NECK WITH A WARM WASH CLOTH HE WAS COVERED WITH JUST A SHEET. ORAL CARE PROVIDED.
--- NOTE | 2019-07-11 10:44 | NUR ---
PATIENT DISCHARGED WITH TRANSPORT AT 1042. RR WAS 30 AT THAT TIME. SHELBY WAS LEFT IN IN PLACE. NO IV. PATIENT TO BE DISCHARGED HOME WITH HOME HEALTH AND HIS .
== END 2019-07-11 10:40 | disposition hospice, home (50) | DRG 871 ==
LOC: ER 16:51 → MEDS 07-07 00:12 → ENPENDDIS 07-11 09:00 → MEDS 07-11 10:40
PROVIDERS: Internal Medicine; Nurse Practitioner Acute Care; Physician Assistant; ADMIT Internal Medicine
DX: A41.9 Sepsis, unspecified organism (principal); G92 Toxic encephalopathy; L03.314 Cellulitis of groin; E87.0 Hyperosmolality and hypernatremia; R65.20 Severe sepsis without septic shock; E11.9 Type 2 diabetes mellitus without complications; G30.9 Alzheimer's disease, unspecified; F02.80 Dementia in other diseases classified elsewhere, unspecified severity, without behavioral disturbance, psychotic disturbance, mood disturbance, and anxiety; E86.0 Dehydration; G47.33 Obstructive sleep apnea (adult) (pediatric); Z51.5 Encounter for palliative care; Z66 Do not resuscitate; Z74.09 Other reduced mobility; Z87.891 Personal history of nicotine dependence
CPT/HCPCS: 36415; 36600; 51702; 71045; 72193; 76870; 80048; 80053; 80202; 81001; 82803; 82947; 83605; 83880; 85025; 87040; 87086; 92610; 96365-59; 96366-59; 96367-59; 99285-25; A9270-GY; J0692; J2543; J3370; J7030; J7040; J7042; J7050; Q9967